=== PATIENT | male | born 1960 | race Caucasian/White ===

== ENCOUNTER 2019-02-10 19:11 | Emergency (ER) | payer OTHER ==
[2019-02-10 19:16] VITALS: TEMP 98.3; BMI 31.1
[2019-02-10] MEDS ORDERED: SODIUM CHLORIDE 1,000 ML IV STA (19:16)
--- NOTE | 2019-02-10 19:17 | PDOC ---
Rapid Medical Evaluation Chief Complaint: Pain, Acute Time Seen by Provider: 02/10/19 19:15 Medical Evaluation: Allergies Allergy/AdvReac Type Severity Reaction Status Date / Time Sulfa (Sulfonamide Allergy Verified 02/10/19 19:17 Antibiotics) Vital Signs Temp Pulse Resp BP Pulse Ox 98.3 F 103 H 18 133/95 97 02/10/19 19:14 02/10/19 19:14 02/10/19 19:14 02/10/19 19:14 02/10/19 19:14 02/10/19 19:17 I have performed a brief in-person evaluation of this patient. The patient presents with a chief complaint of: weakness, head related, sweating Pertinent physical exam findings:stable and in NAD, non-focal I have ordered the following:labs, iv hydration The patient will proceed to the ED for further evaluation.
[2019-02-10] MEDS ORDERED: ACETAMINOPHEN 325 MG TABLET (FP) PO ONE (19:30)
--- NOTE | 2019-02-10 19:35 | PDOC ---
History of Present Illness - General Chief Complaint: Pain, Acute Stated Complaint: PAIN Time Seen by Provider: 02/10/19 19:15 History Source: Patient Exam Limitations: No Limitations - History of Present Illness Initial Comments: 02/10/19 19:35 59y M hx of htn, hl, anxiety, depression presents with one day of mild diffuse pounding headache, feeling malaise/dehydrated, also endorses some atraumatic L knee pain for several days. No fever/chills, cough, n/v, vision changes, numbness/tingling/weakness, neck pain, back pain, abd pain, chest pain, shortness of breath, rashes, diarrhea, melena, dysuria. Patient states he has been working in the heat all day and has not been drinking sufficiently. Constitutional - no reported Fever, Chills, HEENT: no reported vision changes, sore throat Respiratory: no reported cough, sob, hemoptysis Cardiac: no reported chest pain, palpitations, light headedness, leg swelling Abd/GI: no reported abd pain, nausea, vomiting, blood per rectum, melena, diarrhea : no reported dysuria, frequency, discharge Musculskelatal - no reported back pain, joint swelling skin - no reported bruising, erythema, rash neurological: no reported headache, numbness, focal weakness, tingling, ataxia, hematologic: no reported easy bruising, easy bleeding GENERAL: The patient is awake, alert, and fully oriented, Nontoxic - in no acute distress. HEAD: Normocephalic, atraumatic. EYES: extraocular movements intact, sclera anicteric, conjunctiva clear. ENT: Normal voice, Moist mucous membranes. NECK: Normal range of motion, supple LUNGS: Breath sounds equal, clear to auscultation bilaterally. No wheezes, no rhonchi, no rales. HEART: Regular rate and rhythm, normal S1 and S2 without murmur, rub or gallop. ABDOMEN: Soft, nontender, No guarding, no rebound. No CVA tenderness EXTREMITIES: Normal range of motion, no edema. LLE: Normal range of motion of hip and knee, no effusion noted, no erythema or induration, normal flexion and extension, negative anterior and posterior drawer, no negative valgus and varus laxity NEUROLOGICAL: No facial assymetry, Normal speech, mopving all 4 ext spontaneously and symmetrically PSYCH: Normal mood, normal affect. SKIN: Warm, Dry, normal turgor, Differential for the patient's symptoms includes likely dehydration, metabolic derangements, tension headache. wll ck lytes, whill hydrate. No signs of knee effusion, trauma, infection - possible arthritis/overuse - supportive care will give Tylenol will have patient follow PMD. Past History - Past Medical History Allergies/Adverse Reactions: Allergies Allergy/AdvReac Type Severity Reaction Status Date / Time Sulfa (Sulfonamide Allergy Verified 02/10/19 19:17 Antibiotics) Home Medications: Ambulatory Orders Amlodipine Besylate 0 mg PO DAILY 02/10/19 Atorvastatin Calcium 0 mg PO DAILY 02/10/19 Bupropion HCl [Wellbutrin -] 0 mg PO DAILY 02/10/19 Finasteride 5 mg PO DAILY 02/10/19 Losartan Potassium 0 mg PO DAILY 02/10/19 Sertraline HCl 0 mg PO DAILY 02/10/19 Tamsulosin HCl 0.4 mg PO DAILY 02/10/19 COPD: No HTN: Yes Hypercholesterolemia: Yes Psychiatric Problems: Yes (DEPRESSION) - Suicide/Smoking/Psychosocial Hx Smoking History: Never smoked *Physical Exam - Vital Signs Last Vital Signs Temp Pulse Resp BP Pulse Ox 98.3 F 103 H 18 133/95 97 02/10/19 19:14 02/10/19 19:14 02/10/19 19:14 02/10/19 19:14 02/10/19 19:14 ED Treatment Course - LABORATORY CBC & Chemistry Diagram: 02/10/19 19:47 02/10/19 19:47 Medical Decision Making - Medical Decision Making 02/10/19 21:19 Pts labs reviewed pt feeling improved - headache, malaise and knee pian resolved vitals normalized, HR 90 will dc with supportive care at home returnp recautions were discussed I discussed the physical exam findings, ancillary test results and final diagnoses with the patient. I answered all of the patient's questions. The patient was satisfied with the care received and felt comfortable with the discharge plan and treatment plan. The patient will call their primary care physician within 24 hours to arrange follow-up and will return to the Emergency Department with any new, persistent or worsening symptoms. *DC/Admit/Observation/Transfer Diagnosis at time of Disposition: Dehydration Headache Qualifiers: Headache type: tension-type Headache chronicity pattern: acute headache Intractability: not intractable Qualified Code(s): G44.209 - Tension-type headache, unspecified, not intractable Knee pain, left Qualifiers: Chronicity: acute Qualified Code(s): M25.562 - Pain in left knee - Discharge Dispostion Disposition: HOME Condition at time of disposition: Improved Decision to Admit order: No - Referrals Referrals: Kathe Chambers MD [Staff Physician] - - Patient Instructions Printed Discharge Instructions: DI for Hormonal and Tension Headaches Additional Instructions: Return to the emergency department immediately with ANY new, persistent or worsening symptoms including worsening headache, vision changes, numbness/ tingling/weakness, persistent nausea and vomiting or any other concerns. Make sure you are getting adaqute sleep and hydration. You MUST call and follow up with your doctor in 4-5 days for further evaluation of your symptoms. Your emergency department visit is not complete without a followup with your doctor for reevaluation. Results were discussed with you. Please make sure your doctor reviews the results of your emergency evaluation. - Post Discharge Activity
[2019-02-10] MEDS ORDERED: ACETAMINOPHEN 325 MG TABLET (FP) ONE (19:51)
[2019-02-10 20:01] LABS: BASO % 0.9 % (0-2.0); EOS % 4.8 % (0-4.5); HEMATOCRIT 40.1 % (35.4-49); HEMOGLOBIN 13.5 GM/dL (11.7-16.9); LYMPH % 28.3 % (8-40); MCHC 33.6 g/dl (32.0-35.9); MEAN CELL VOLUME 86.3 fl (80-96); MEAN PLT VOLUME 8.5 fl (7.5-11.1); MONO % 10.6 % (3.8-10.2); NEUT % 55.4 % (42.8-82.8); PLATELET COUNT 198 K/MM3 (134-434); RBC 4.65 M/mm3 (4.00-5.60); RDW 13.6 % (11.9-15.9); WHITE BLOOD COUNT 5.5 K/mm3 (4.0-10.0)
[2019-02-10 20:40] LABS: ALBUMIN 3.7 g/dl (3.4-5.0); BILIRUBIN,TOTAL 0.6 mg/dL (0.2-1); BLOOD UREA NITROGEN 10.4 mg/dL (7-18); CALCIUM 9.2 mg/dL (8.5-10.1); POTASSIUM 4.4 mmol/L (3.5-5.1)
[2019-02-10 21:25] VITALS: BP 130/90; PULSE 90
== END 2019-02-10 21:25 | disposition home or self-care (01) ==
LOC: JERFT 19:11
PROC: 3E0337Z Introduction of Electrolytic and Water Balance Substance into Peripheral Vein, Percutaneous Approach (ICD-10-PCS; principal; 2019-02-10)
DX: E86.0 Dehydration (principal); G44.209 Tension-type headache, unspecified, not intractable; M25.562 Pain in left knee
CPT/HCPCS: 36415; 80053; 85025; 96360; 99281-25; J7030

== ENCOUNTER 2024-06-05 03:58 | Day surgery (SDC) | payer OTHER ==
[~2024-06-05 03:58] MED LIST: LACTATED RINGERS SOLUTION 1,000 ML IV SCH; ONDANSETRON 4 MG/2 ML VIAL IVPUSH PRN; PROMETHAZINE HCL 25 MG/1 ML VIAL IVPB PRN; oxyCODONE HCL 5 MG TABLET PO PRN
[2024-06-05] MEDS ORDERED: PROPOFOL 40 ML ONE (10:04)
[2024-06-05] MEDS ORDERED: ONDANSETRON 4 MG/2 ML VIAL ONE (10:04)
[2024-06-05] MEDS ORDERED: SODIUM CHLORIDE 0.9% P/F 10 ML VIAL IJ ONE (10:05)
[2024-06-05] MEDS ORDERED: ceFAZolin SODIUM 1 GM VIAL ONE (10:05)
[2024-06-05] MEDS ORDERED: MIDAZOLAM HCL 2 MG/2 ML SINGLE DOSE VIAL ONE ×2 (10:14→10:42)
[2024-06-05] MEDS: ceFAZolin SODIUM 1 GM VIAL IVPB ONE (10:51)
[2024-06-05 12:30] VITALS: RESP 18
[2024-06-05 15:37] VITALS: BP 145/83; PULSE 67; TEMP 97.8
[2024-06-05 15:53] LABS: EPI CELLS 11 /uL (0-25.1); HYALINE CASTS 0 /uL (0-3.1); PH,URINE 5.5 (5.0-8.0); URINE APPEARANCE CLEAR; URINE BACTERIA 19 /uL (0-1359); URINE BILIRUBIN NEGATIVE (NEGATIVE); URINE COLOR YELLOW; URINE GLUCOSE (UA) NEGATIVE (NEGATIVE); URINE KETONE NEGATIVE (NEGATIVE); URINE LEUK ESTERASE 1+ (NEGATIVE); URINE NITRITE NEGATIVE (NEGATIVE); URINE PROTEIN NEGATIVE (NEGATIVE); URINE RBC 17 /uL (0-23.9); URINE UROBILINOGEN 0.2 mg/dL (0.2-1.0); URINE WBC 44 /uL (0-25.8)
== END 2024-06-05 16:02 ==
LOC: JASU-SURG 03:58
PROVIDERS: ATTEND Urology
PROC: 0TJB8ZZ Inspection of Bladder, Via Natural or Artificial Opening Endoscopic (ICD-10-PCS; principal; 2024-06-05 11:30)
DX: N40.1 Benign prostatic hyperplasia with lower urinary tract symptoms (principal); R33.9 Retention of urine, unspecified
CPT/HCPCS: 81003; 87086; 94760